=== PATIENT | female | born 1990 | race Caucasian/White ===

== ENCOUNTER → 2020-01-30 10:24 | Outpatient (CLI) | payer SELFPAY | PROVIDERS: Visit Provider Family Medicine | DX: Z11.59 Encounter for screening for other viral diseases (principal) | CPT/HCPCS: 87635; G2023; U0003 ==

== ENCOUNTER 2020-05-07 10:28 | Emergency (ER) | payer OTHER, MEDICAID, SELFPAY ==
[2020-03-19 17:06] VITALS: BMI 18.7
[2020-05-07 10:30] VITALS: BP 140/82; PULSE 125; RESP 17; TEMP 36.8; O2SAT 100; BMI 19.3
--- NOTE | 2020-05-07 10:41 | EKG12_ITS ---
Test Reason : PALP Blood Pressure : / mmHG Vent. Rate : 096 BPM Atrial Rate : 096 BPM P-R Int : 152 ms QRS Dur : 082 ms QT Int : 356 ms P-R-T Axes : 079 082 060 degrees QTc Int : 449 ms Normal sinus rhythm Normal ECG Confirmed by STANFORD SORTO, TRISH ([id number]), television news video editor SONI HEREDIA ([id number]) on 05/09/2020 10:11:30 AM Referred By: FOLR Confirmed By:TRISH COYNE MD
--- NOTE | 2020-05-07 10:42 | ED.DCSUM_ITS ---
History of Present Illness Chief Complaint: Palpitations Detail of Chief Complaint: Chest tightness and racing heart Informant: Patient Onset: Yesterday Context: Gradual Onset Timing: Waxes and wanes Current Severity: Mild Maximum Severity: Moderate Narrative: Patient presents with chest tightness that started last evening while she was cooking. She does not feel short of breath. She denies lightheadedness or near syncope. She does feel that her heart is racing. She states this persisted all night and when she went to work this morning she had 1 of the nurses at work check her vital signs. Her blood pressure and heart rate were both elevated so she came in for evaluation. She denies DVT risk factors. Past Medical History - Allergies and Home Meds Allergies/Adverse Reactions: Allergies No Known Allergies Allergy (Verified 05/07/20 10:30) Primary Care Physician: Sara Laguerre MD [STAFF PHYSICIAN] - As Needed Prior records reviewed: Yes Smoking Status: Never smoker Review of Systems General: Denies: Chills, Fever Eyes: Denies: Visual changes - bilaterally ENT: Denies: Bilateral ear pain Cardiovascular: Reports: Chest pain - Chest tightness, Heart racing Respiratory: Denies: Dyspnea, Cough Gastrointestinal: Denies: Abdominal pain, Vomiting, Diarrhea Genitourinary: Denies: Dysuria Musculoskeletal: Denies: Swelling, Extremity Pain Neurological: Denies: Headache Hematologic: Denies: Easy bruising, Easy bleeding Allergy: Denies: Uticaria Physical Exam Vital Signs/Narrative: Vital Signs Temp Pulse Resp BP Pulse Ox 05/07/20 10:30 98.2 F 125 H 17 140/82 H 100 Inital Vital Signs reviewed: Yes General: Well nourished, Well developed Head: Normocephalic ENT: Moist mucous membranes Neck: Supple Cardiovascular: Regular rate, Regular rhythm, Tachycardia Respiratory: No distress, CTA bilaterally Abdomen: Soft, Nontender Skin: Normal color Neurological: Alert Psychological: Normal affect Diagnostic/Tx/Re-eval Impressions Chest X-Ray 05/07/20 11:06 IMPRESSION: Normal x-ray examination of the chest. Electronically Signed: Eri Guadarrama, at 11:59 EDT Tel , Service support , 05/07/20 11:06 Chest 1 View (Portable) [RAD] Stat Laboratory Results 05/07/20 05/07/20 05/07/20 11:10 11:10 11:10 WBC 6.1 RBC 4.53 Hgb 14.6 Hct 39.4 MCV 87.0 MCH 32.2 H MCHC 37.1 H RDW Std Deviation 38.8 RDW Coeff of Jacques 12.2 Plt Count 247 MPV 9.9 Immature Gran % (Auto) 0.200 Neut % (Auto) 71.8 H Lymph % (Auto) 19.5 Burke % (Auto) 7.9 Eos % (Auto) 0.3 Baso % (Auto) 0.3 Absolute Neuts (auto) 4.4 Absolute Lymphs (auto) 1.18 Nucleated RBC % 0 D-Dimer Quant (PE/DVT) 0.28 Sodium 137 Potassium 3.1 L Chloride 107 Carbon Dioxide 24.0 Anion Gap 6 BUN 8 Creatinine 0.79 Estim Creat Clear Calc 80.00 Est GFR (MDRD) Af Amer 111 Est GFR (MDRD) Non-Af 92 BUN/Creatinine Ratio 10.1 Glucose 103 Calcium 8.8 Troponin I < 0.015 TSH 0.75 Serum , Qual 05/07/20 11:10 WBC RBC Hgb Hct MCV MCH MCHC RDW Std Deviation RDW Coeff of Jacques Plt Count MPV Immature Gran % (Auto) Neut % (Auto) Lymph % (Auto) Burke % (Auto) Eos % (Auto) Baso % (Auto) Absolute Neuts (auto) Absolute Lymphs (auto) Nucleated RBC % D-Dimer Quant (PE/DVT) Sodium Potassium Chloride Carbon Dioxide Anion Gap BUN Creatinine Estim Creat Clear Calc Est GFR (MDRD) Af Amer Est GFR (MDRD) Non-Af BUN/Creatinine Ratio Glucose Calcium Troponin I TSH Serum , Qual NEGATIVE - EKG Initial EKG Interpretation: Sinus Rhythm - Sinus at 96 with no acute ischemia. Normal intervals. - Medical Decision Making Patient was given IV fluids here. On repeat evaluation she is resting comfortably. Oral potassium replacement is given. She will be given a prescription for 3 additional days. The remainder of her lab work is unremarkable patient is reassured with this. ED Disposition - Plan for ED Patient: Disposition: Longterm Facility Diagnosis: Palpitations, Hypokalemia Instructions: ED Potassium Deficiency, ED Palpitations Prescriptions: Potassium Chloride [Klor-Con] 20 meq PO BID #6 packet Transmission Status: Pending to [id number] Referrals: Sara Laguerre MD [STAFF PHYSICIAN] - As Needed
--- NOTE | 2020-05-07 11:06 | RAD_ITS ---
STUDY: X-RAY CHEST REASON FOR EXAM: Female, 29 years old. PALPITATIONS AND CHEST TIGHTNESS STARTING LAST NIGHT TECHNIQUE: Single AP portable view of the chest. COMPARISON: None. FINDINGS: The lungs are clear and expanded. There is no demonstrated pleural abnormality. Normal size heart. Normal mediastinum and wm. Normal visualized pulmonary arteries. Normal visualized aortic arch and descending thoracic aorta. Normal visualized thoracic spine. Normal visualized ribs, clavicles, and shoulders. There is no demonstrated abnormality of the visualized soft tissue structures of the upper abdomen. RAD/Chest 1 View (Portable) IMPRESSION: Normal x-ray examination of the chest. Electronically Signed: Eri Guadarrama, at 11:59 EDT Tel , Service support ,
[2020-05-07 11:28] LABS: Absolute Lymphocyte Count 1.18 X10^3/uL (0.83-4.51); Absolute Neutrophil Count 4.4 X10^3/uL (2.0-7.7); Basophil# 0.02 X10^3/uL; Basophil% 0.3 % (0-1); Eosinophil# 0.02 X10^3/uL; Eosinophils% 0.3 % (0-5); Hematocrit 39.4 % (37-47); Hemoglobin 14.6 g/dL (12.0-15.0); Lymphocyte # 1.18 X10^3/ul (4.0); Lymphocyte % 19.5 % (19-41); Mean Corp Hgb Conc 37.1 g/dL (32-36); Mean Corpuscular Hgb 32.2 pg (27.0-32.0); Mean Platelet Vol. 9.9 fl (6.2-12.0); Monocyte# 0.48 X10^3/uL; Monocyte% 7.9 % (0-10); NRBC Flagged by Analyzer 0 % (0-5); Neutrophil # 4.35 X10^3/uL (2.7-7.7); Neutrophil % 71.8 % (47-70); Platelet Count 247 K/mm3 (150-450); RBC Distribution Width CV 12.2 % (11.6-14.6); RBC Distribution Width SD 38.8 fl (35.1-43.9); Red Blood Count 4.53 M/mm3 (4.2-5.4); White Blood Count 6.1 K/mm3 (4.4-11.0)
[2020-05-07 11:29] VITALS: PULSE 107; RESP 21; O2SAT 94
[2020-05-07 11:50] LABS: D-Dimer Quantitative (DVT/PE) 0.28 FEU/ug/m (0.27-0.49)
[2020-05-07 11:53] LABS: Anion Gap 6 (5-15); BUN 8 mg/dL (7-18); BUN/Creat Ratio 10.1 RATIO (10-20); Calcium,Total 8.8 mg/dL (8.5-10.1); Chloride 107 mmol/L (98-107); Creatinine, Serum 0.79 mg/dL (0.55-1.02); EST Glomerular Filtration Rate 92 mL/min (>60); Est Glom Filt Rate - Afr Amer 111 mL/min (>60); Glucose 103 mg/dL (74-106); Potassium 3.1 mmol/L (3.5-5.1); Sodium Level 137 mmol/L (136-145); Thyroid Stim Hormone (TSH) 0.75 uIU/mL (0.358-3.74)
[2020-05-07] MEDS: 0.9% Normal Saline 1,000 ML 1000 ML IV (12:00)
[2020-05-07 12:16] LABS: Internal QC Validated? YES +Cl - CLEAR BKGD; Pregnancy, Serum, hCG Quali. NEGATIVE Negative
== END 2020-05-07 13:20 | disposition home or self-care (01) ==
PROVIDERS: Emergency Provider Emergency Medicine
DX: R00.2 Palpitations (principal); E87.6 Hypokalemia; R07.89 Other chest pain
CPT/HCPCS: 71045; 80048; 84443; 84484; 84703; 85025; 85379; 93005; 96360; 99284; J7030; A4216

== ENCOUNTER 2020-05-10 19:33 | Emergency (ER) | payer OTHER, MEDICAID, SELFPAY ==
[2020-05-10 19:35] VITALS: BP 149/98; PULSE 103; RESP 18; TEMP 36.2; O2SAT 99; BMI 19.2
--- NOTE | 2020-05-10 19:47 | ED.DCSUM_ITS ---
History of Present Illness Chief Complaint: Hypertension Informant: Patient Narrative: 29-year-old female with no significant past medical history presents with concern for elevated blood pressure. States that she was seen here 2 days ago and had a complete work-up for chest pain. Was found to have low potassium and given potassium replacement. Patient concerned because her blood pressure was elevated again she felt like her heart was racing. Is concerned that her potassium level is related to this issue. States that yesterday she woke up with a sore throat and a cough. Denies any fever or chills. Patient already has had coronavirus 2 months ago and has since convalesced. Denies any history of DVT or pulmonary embolism. Past Medical History - Allergies and Home Meds Allergies/Adverse Reactions: Allergies No Known Allergies Allergy (Verified 05/10/20 19:38) Primary Care Physician: Silvestre Mason MD [Primary Care Provider] - Past Medical History: None Surgical History: no surgical history Lives: With Family Smoking Status: Never smoker Alcohol: None Drugs: None Review of Systems General: Denies: Chills, Fever, Sweats Eyes: Denies: Visual changes - bilaterally, Diplopia ENT: Denies: Rhinorrhea, Sore throat Cardiovascular: Denies: Chest pain, Palpitations Respiratory: Denies: Dyspnea, Cough, Dyspnea on exertion Gastrointestinal: Denies: Abdominal pain, Nausea, Vomiting, Diarrhea, Melena, Hematochezia Genitourinary: Denies: Dysuria, Hematuria, Frequency Musculoskeletal: Denies: Back pain, Extremity Pain Skin: Denies: Rash, Wounds Neurological: Denies: Headache, Weakness, Numbness Physical Exam Vital Signs/Narrative: Vital Signs Temp Pulse Resp BP Pulse Ox 05/10/20 19:35 97.1 F L 103 H 18 149/98 H 99 Inital Vital Signs reviewed: Yes General: Well nourished, Well developed, No Acute Distress Head: Normocephalic, Atraumatic Eyes: Perrl, EOMI ENT: Moist mucous membranes, No rhinorrhea Neck: Supple, Nontender Cardiovascular: Regular rate, Regular rhythm, No murmurs Respiratory: No distress, CTA bilaterally, Chest nontender Abdomen: Soft, Nontender, Nondistended, Normal bowel sounds Back: Nontender, Normal Inspection Extremities: Nontender, No edema Skin: Normal color, No rash Neurological: Alert, Oriented x3, Cranial nerves II-XII grossly intact, Normal Strength, Normal Sensation Psychological: Normal affect, Normal Mood Diagnostic/Tx/Re-eval Laboratory Data 05/10/20 05/10/20 20:10 20:10 WBC 7.9 RBC 4.54 Hgb 13.6 Hct 40.0 MCV 88.1 MCH 30.0 MCHC 34.0 D RDW Std Deviation 38.5 RDW Coeff of Jacques 12.0 Plt Count 228 MPV 9.4 Immature Gran % (Auto) 0.300 Neut % (Auto) 77.4 H Lymph % (Auto) 13.9 L [place] % (Auto) 7.7 Eos % (Auto) 0.3 Baso % (Auto) 0.4 Absolute Neuts (auto) 6.1 Absolute Lymphs (auto) 1.10 Sodium 137 Potassium 3.4 L Chloride 103 Carbon Dioxide 29.0 Anion Gap 5 BUN 7 Creatinine 0.73 Estim Creat Clear Calc 86.27 Est GFR (MDRD) Af Amer 122 Est GFR (MDRD) Non-Af 101 BUN/Creatinine Ratio 9.6 L Glucose 100 Calcium 8.9 Troponin I < 0.015 - Rhythm Strip Rhythm Strip: Sinus Rhythm Rate: 78 Ectopy: None - EKG Initial EKG Interpretation: Sinus Rhythm - Sinus rhythm at 78 bpm. NV interval of 164 ms. QTC of 410 ms. No evidence of ST elevation or depression at this time. - Medical Decision Making Patient appears well nontoxic. Vital signs within normal limits. EKG nonischemic. Lab work repeated which is negative other than a mild hypokalemia. Patient has potassium replacement at home. Patient was also given hydroxyzine as well as Naprosyn in the emergency department. Patient states that she feels the hydroxyzine did help her symptoms and will be given this for home. Was advised to follow-up with her primary care provider Dr. Mason for Holter monitor. Discharged home in stable condition. 1. Palpitations 2. Hypokalemia ED Disposition - Plan for ED Patient: Disposition: Home or Assisted Living Instructions: ED HBP No Tx, ED Palpitations, What Is Holter Monitoring? Prescriptions: hydrOXYzine pamoate capsule [Vistaril pamoate capsule] 25 mg PO TID PRN PRN #20 cap PRN Reason: Anxiety Prescription Printed Referrals: Silvestre Mason MD [Primary Care Provider] -
--- NOTE | 2020-05-10 19:47 | EKG12_ITS ---
Test Reason : HTN Blood Pressure : / mmHG Vent. Rate : 078 BPM Atrial Rate : 078 BPM P-R Int : 164 ms QRS Dur : 080 ms QT Int : 360 ms P-R-T Axes : 067 075 054 degrees QTc Int : 410 ms Normal sinus rhythm Normal ECG Confirmed by TACHO SORTO, NATALY ([id number]), newspaper photo editor SONI HEREDIA ([id number]) on 05/16/2020 11:01:58 AM Referred By: JENNI Confirmed By:MASHA TITUS MD
[2020-05-10] MEDS: hydrOXYzine PAM 25 MG Capsule PO (20:19)
[2020-05-10] MEDS: Naproxen 375 MG Tablet PO (20:39)
[2020-05-10 20:44] LABS: Anion Gap 5 (5-15); BUN 7 mg/dL (7-18); BUN/Creat Ratio 9.6 RATIO (10-20); Calcium,Total 8.9 mg/dL (8.5-10.1); Chloride 103 mmol/L (98-107); Creatinine, Serum 0.73 mg/dL (0.55-1.02); EST Glomerular Filtration Rate 101 mL/min (>60); Est Glom Filt Rate - Afr Amer 122 mL/min (>60); Estimated Creatinine Clearance 86.27 ml/min; Glucose 100 mg/dL (74-106); Potassium 3.4 mmol/L (3.5-5.1); Sodium Level 137 mmol/L (136-145)
[2020-05-10 20:56] LABS: Hemoglobin 13.6 g/dL (12.0-15.0); Red Blood Count 4.54 M/mm3 (4.2-5.4); White Blood Count 7.9 K/mm3 (4.4-11.0)
[2020-05-10 20:58] LABS: Mean Corpuscular Volume 88.1 fL (81-99)
[2020-05-10 21:00] LABS: Absolute Neutrophil Count 6.1 X10^3/uL (2.0-7.7); Basophil% 0.4 % (0-1); Eosinophils% 0.3 % (0-5); Lymphocyte % 13.9 % (19-41); Mean Platelet Vol. 9.4 fl (6.2-12.0); Monocyte% 7.7 % (0-10); Neutrophil # 6.13 X10^3/uL (2.7-7.7); Neutrophil % 77.4 % (47-70); POSITIVE COUNT NO; POSITIVE DIFFERENTIAL NO; POSITIVE MORPHOLOGY NO; Platelet Count 228 K/mm3 (150-450); RBC Distribution Width SD 38.5 fl (35.1-43.9)
[2020-05-10 21:01] LABS: Basophil# 0.03 X10^3/uL; Eosinophil# 0.02 X10^3/uL; Monocyte# 0.61 X10^3/uL
[2020-05-10 21:39] VITALS: BP 132/78; PULSE 71; RESP 18; O2SAT 99
== END 2020-05-10 21:40 | disposition home or self-care (01) ==
PROVIDERS: Emergency Provider Emergency Medicine; PCP Family Medicine
DX: R00.2 Palpitations (principal); E87.6 Hypokalemia; I10 Essential (primary) hypertension; J02.9 Acute pharyngitis, unspecified; R05 Cough
CPT/HCPCS: 80048; 84484; 85025; 93005; 99283

== ENCOUNTER → 2020-05-17 11:51 | Outpatient (CLI) | payer OTHER, MEDICAID, SELFPAY ==
[2020-05-10 19:35] VITALS: BMI 19.2
== END ==
PROVIDERS: PCP Family Medicine; Visit Provider Nurse Practitioner Primary Care
DX: R00.0 Tachycardia, unspecified (principal)
CPT/HCPCS: 93225; 93226

== ENCOUNTER 2021-01-15 05:54 | Day surgery (SDC) | payer OTHER, MEDICAID, SELFPAY ==
[2020-12-10 11:13] VITALS: BMI 19.2
[2021-01-11 14:58] LABS: Hematocrit 37.2 % (37-47); Hemoglobin 12.1 g/dL (12.0-15.0); Mean Corp Hgb Conc 32.5 g/dL (32-36); Mean Corpuscular Hgb 28.2 pg (27.0-32.0); Mean Corpuscular Volume 86.7 fL (81-99); Mean Platelet Vol. 9.3 fl (6.2-12.0); Platelet Count 222 K/mm3 (150-450); RBC Distribution Width CV 12.5 % (11.6-14.6); RBC Distribution Width SD 39.8 fl (35.1-43.9); Red Blood Count 4.29 M/mm3 (4.2-5.4); White Blood Count 5.8 K/mm3 (4.4-11.0)
[2021-01-14 06:34] VITALS: BMI 19.2
[2021-01-15 06:16] LABS: Internal QC Validated? YES +Cl - CLEAR BKGD; Pregnancy, Urine Negative Negative
[2021-01-15 06:23] VITALS: BP 126/86; PULSE 103; RESP 18; TEMP 36.8; O2SAT 100; BMI 20.5
[2021-01-15] MEDS: Lactated Ringers 1,000 ML 100 ML IV (06:34)
--- NOTE | 2021-01-15 07:27 | PCM.HP.BLA ---
History and Physical Date of Admission: 01/15/21 Intake Vital Signs 01/11/21 14:12 01/11/21 14:13 Height 5 ft 3 in Weight: 111 lb BMI 19.6 19.2 BP 100/60 Intake Visit Reasons: D&C polypectomy Chief Complaint: pre op D&C polypectomy Master Data Analyst Required: No Is patient in pain?: No Allergies No Known Allergies Allergy (Verified 01/11/21 13:42) Medications escitalopram oxalate 10 mg tablet 10 mg PO QHS 12/10/20 [History Confirmed 01/11/21] [id number] [] 1 tab PO DAILY 01/11/21 [History Confirmed 01/11/21] Is last menstrual period known: No Post menopausal: No Patient : No : No PFSH Medical History Alcohol use Anxiety History of COVID-19 Non-smoker Uterine polyp Family History Mother Thyroid disorder Anxiety Social History Smoking Status: Never smoker alcohol intake: current alcohol intake frequency: 0-2 drinks per day Alcohol type: wine substance use type: does not use caffeine: Yes what type of physical activity do you participate in: yoga frequency: 1-2 times per week do you feel safe at home: Yes additional social history: Louis Patient works at the [employer] HPI D&C polypectomy Details: ROSAMARIA MOTA is a 30 year old who presents for proep visit. she has been seeing an infertility specialist and it is recommend to have a hysteroscopic polypectomy removal Female Reproductive History Menopausal Symptoms: No night sweats Pregancy History 2 Elective abortions Hx Para 1 Spontaneous abortions 1 Hx # Term Pregnancies Ectopic pregnancies Hx # Pregnancies Multiple births # of living children 1 Past Pregnancies Del. Date Name GA/Weeks Outcome Route Bth Weight Infant Gen Labor Lgth Anesthesia Del Locatn Provider FOB Unknown Vonda 40 live - full term 6lbs 11oz Female 5.5 hours epidural Benekos ROS Const Constitutional: Denies fatigue, fever(s), headache(s), increased appetite, poor appetite, night sweats, weight gain or weight loss ENT ENT: Reports system reviewed and no additional complaints, except as documented Cardio Card: Denies chest pain Resp Resp: Denies cough or dyspnea GI GI: Reports as per HPI; Denies abdominal pain, constipation, nausea or vomiting : Reports as per HPI; Denies difficulty voiding, dysuria, hematuria, nipple discharge, pelvic pain, urinary frequency, urinary incontinence, urinary hesitancy, urinary urgency, vaginal discharge, vaginal dryness, vaginal odor, vaginal pruritus or other Musc Musc: Denies arthralgias, back pain or muscle weakness Skin Skin/Breast: Denies alopecia, change in hair, dry skin, breast mass, breast pain, breast skin changes or nipple discharge Neuro Neuro: Reports system reviewed and no additional complaints, except as documented Psych Psych: Reports system reviewed and no additional complaints, except as documented Endo Endo: Denies cold intolerance, excessive sweating, heat intolerance or polydipsia Rene/Lymph Hematologic/Lymphatic: Denies easy bleeding, Denies easy bruising and Denies lymphadenopathy Exam Const General: cooperative, healthy appearing, comfortable, no acute distress and well developed Orientation: alert [facility] Head: normal to inspection and normocephalic Ears: hearing grossly normal bilaterally and external ears normal Nose: external nose normal and nares normal Face and sinus: normal facial exam Neck Neck: normal visual inspection, no lymphadenopathy and trachea midline Thyroid: thyroid normal Chest Chest palpation & inspection: normal inspection of the chest Resp Effort & Inspection: normal respiratory effort Auscultation: clear to auscultation bilaterally Cardio Rate: regular rate Rhythm: regular rhythm Heart Sounds: S1 normal and S2 normal GI Inspection: normal to inspection and non-distended Palpation: soft and no hepatosplenomegaly Musc Other: gross motor intact no deficits, full bilateral strength Skin General: no rashes or lesions noted Neuro General: patient alert, patient awake, moves all extremities and no focal motor deficits Motor: muscle tone normal throughout Extrem General: normal to inspection and no pedal edema Psych Appearance: grossly normal Mental Status: mental status grossly normal Affect: normal affect Speech and Movement: speech and movement normal Coding Level of Care Code No Charge Diagnoses Endometrial polyp N84.0 Assessment and Plan Assessment and Plan (1) Endometrial polyp: Status: Acute Comment: diagnosed by RGI recommended to have d and c polypectomy, patient requesting surgery at [facility] for better insurance coverage Plan - Dr. Marisabel Hudson MD: After discussing the patient's diagnosis and treatment plan options, patient wishes to proceed with surgical management. I have discussed with the patient the risks, benefits, and alternatives of the procedure which include but are not limited to risks of anesthesia, bleeding, infection, possible damage to bowel, bladder, or surrounding vasculature which could lead to additional surgery to evaluate any complications. Patient agrees to procedure and wishes to proceed. ACOG/uptodate references given for additional information regarding procedure. UPDATE- I have seen the patient and performed any clinically relevant updates to the history and physical exam. Marisabel Hudson MD
--- NOTE | 2021-01-15 07:30 | EMB_PTH ---
PATIENT: ROSAMARIA HYDE LOC: [facility] [place] U#:[id number] AGE/SX: 30/F ROOM: RE01/15/[address]: Dr. Marisabel Hudson MD : 1990 BED: DIS: 01/15/2021 SPEC #: [id number] RECD: 01/15/21 10:13 STATUS: KILLIAN REJose #: [id number] NEGRA: 01/15/21 07:[address]: Marisabel Hudson DEPT: SURGICAL PATHOLOGY RECD BY: Carri Mack ENTERED: 01/15/21 10:34 SP TYPE: ENDOM BX/C OTHR DR: Dr. Silvestre Mason MD Tissues: Endometrium, NOS Procedures: Surgery Specimen Level IV HEADER OPERATION: Hysteroscopy, D & C, polypectomy, Symphion PRE-OP DIAGNOSIS: Endometrial polyp TISSUE SUBMITTED: Endometrial polyp MICROSCOPIC DIAGNOSIS Endometrial polyp, curettings: Polypoid fragments of secretory endometrium. AM:finn 01/16/2021 MICROSCOPIC DESCRIPTION Slides are reviewed. GROSS DESCRIPTION Received in fixative is one container labeled with the patient's name and designated endometrial polyp. The specimen consists of multiple irregular fragments of myers-pink soft tissue that in aggregate measure 7.5 x 3 x 0.3 cm. The specimen is totally submitted in three cassettes. / SJ:finn 01/15/21 TC:5 CPT: 94488
[2021-01-15] MEDS: Lubricating Jelly 60 GM Tube 30 GM TOPICAL (07:41)
[2021-01-15] MEDS: Silver Nitrate (BKC) 1 EACH (07:50)
--- NOTE | 2021-01-15 08:04 | PCM.OPRPT ---
Problems Associated Problem List Diagnoses (1) Endometrial polyp: Report of Operation Date of Procedure: 01/15/21 Pre-Operative Diagnosis: see problem list Post-Operative Diagnosis: same Surgery/Procedure Performed:: D&C hysteroscopy polypectomy using symphion desktop support engineer: None Type of Anesthesia: Local MAC Special Medications: none Specimen's removed: EMC, polyp Drains: none Estimated Blood Loss (mL): 50 Fluids Replaced: crystalloid Description of Procedure: Patient was prepped and draped in a normal sterile fashion under MAC anesthesia. A weighted speculum was placed in the vagina and the anterior lip of the cervix was grasped with a single-tooth tenaculum. A paracervical block was placed with 1% lidocaine. Cervix was progressively dilated to allow passage of a 5 mm hysteroscope. The lining was fully visualized and noted to have thickened lining with a posterior polyp. Uterine sounded to 8 cm cm. Using the symphion device, the polyp was progressively removed without complications. Direct visual curettage was performed using the device , and all specimens were sent to pathology. All instruments were removed from the vagina and excellent hemostasis was noted. Patient was awoken and taken to recovery in stable condition. Grafts/Implants Used: none Complications none Admit VTE Documentation VTE Present on Admission: No VTE Mechan Device Prophylaxis: SCD's Multi Select Codes Urinary/Genital Urinary/Genital CPT Codes: 60835 Hysteroscopy,EMC, Polypectomy
[2021-01-15 08:05] VITALS: BP 124/89; BP 126/86; PULSE 101; RESP 16; TEMP 36.4; O2SAT 100
--- NOTE | 2021-01-15 08:09 | PCM.DC ---
Discharge Instructions Diet Discharge Diet: No restrictions Activity Discharge Activity: Return to Normal Activity, May Shower and May Take a Tub Bath (after 1 week) May resume sexual activity in: 1-2 weeks Weight Bearing Status: Weight bearing as tolerated Lifting Restrictions: none Dressing / Incision Call your doctor if you observe: Fever of 101 or Higher, Using more than 1 pad per hour, Shortness of breath and Uncontrolled pain Follow Up Care Please Follow Up With: Marisabel Hudson MD When: Call [phone] to schedule appointment. Test Results: Test results from this visit will be discussed in further detail at your follow-up appointment, if applicable. Discharge Plan Admission Primary Reason for Your Visit: polypectomy Attending Provider: Marisabel Hudson Primary Care Provider: Silvestre Mason Discharge Orders/Prescriptions Prescriptions: New naproxen 250 MG tablet 250 - 500 mg PO Q8H PRN PRN (Reason: MILD PAIN) Qty: 30 RF: 1 Continued escitalopram oxalate [Lexapro] 10 mg tablet 10 mg PO QHS RF: 0 [id number] 1 mg Tablet 1 tab PO DAILY RF: 0 Referrals / Follow Up: Silvestre Mason MD [Primary Care Provider] - Marisabel Hudson MD [STAFF PHYSICIAN] - Disposition Discharge Orders: Discharge Patient (Routine); Ordered 01/15/21 Ordered By: Dr. Marisabel Hudson
[2021-01-15 08:10] VITALS: BP 115/80; BP 126/86; PULSE 94; RESP 16; O2SAT 99
[2021-01-15 08:15] VITALS: BP 111/69; BP 126/86; PULSE 88; RESP 16; O2SAT 100
[2021-01-15 08:20] VITALS: BP 104/68; BP 126/86; PULSE 84; RESP 16; TEMP 36.1; O2SAT 100
[2021-01-15 08:56] VITALS: BP 105/68; BP 126/86; PULSE 81; RESP 16; TEMP 36.8; O2SAT 100
== END 2021-01-15 08:59 ==
LOC: SDC 05:54 → AC 05:55
PROVIDERS: Anesthesiology; PCP Family Medicine; Referring Provider Obstetrics & Gynecology; Visit Provider Obstetrics & Gynecology
PROC: 0UB98ZZ Excision of Uterus, Via Natural or Artificial Opening Endoscopic (ICD-10-PCS; CPT 58558; principal; 2021-01-15 07:15)
DX: N84.0 Polyp of corpus uteri (principal); F41.9 Anxiety disorder, unspecified; Z79.899 Other long term (current) drug therapy; Z86.16 Personal history of COVID-19
CPT/HCPCS: 58558; 36415; 81025; 85027; 86850; 86900; 86901; 88305; J7120

== ENCOUNTER → 2021-05-13 | Outpatient (CLI) | payer OTHER, SELFPAY ==
[2021-05-13 16:24] LABS: Chlamydia Trachomatis by PCR Negative (Negative); Neisserai gonorrhoeae by PCR Negative (Negative); Probe Check PASS; Sample Adequacy Control PASS; Specimen Processing Control PASS
== END | disposition home or self-care (01) ==
PROVIDERS: PCP Family Medicine; Visit Provider Physician Assistant
DX: N39.0 Urinary tract infection, site not specified (principal)
CPT/HCPCS: 87491; 87591

== ENCOUNTER → 2021-05-18 | Outpatient (CLI) | payer OTHER, SELFPAY ==
[2021-05-18 10:15] LABS: Bacteria 0 SEEN /hpf (None Seen); Mucous, Urine 0 SEEN /hpf (<or=2+); Red Blood Cells-Urine 0 SEEN /hpf (0-5); White Blood Cells 0 SEEN /hpf (0-5)
[2021-05-18 10:20] LABS: Color, Urine Yellow (Yellow); Glucose, Dipstick Normal (Normal); Ketone-Dipstick Negative (Negative); Leukocyte Esterase-Dipstick Negative /ul (Negative); Nitrite-Dipstick Negative (Negative); Occult Blood-Urine Negative /ul (Negative); Protein-Dipstick Negative (Negative); Urine Bilirubin Dipstick Negative (Negative); Urine Clarity Clear (Clear); Urine Urobilinogen Normal (Normal)
[2021-05-18 10:43] LABS: Squamous Epithelial Cells - UA 0-5 SEEN /hpf (5-10)
[2021-05-18 13:28] LABS: Chlamydia Trachomatis by PCR Negative (Negative); Neisserai gonorrhoeae by PCR Negative (Negative); Probe Check PASS; Sample Adequacy Control PASS; Specimen Processing Control PASS
== END | disposition home or self-care (01) ==
LOC: LABSPEC 10:05
PROVIDERS: PCP Family Medicine; Referring Provider Physician Assistant Surgical; Visit Provider Physician Assistant Surgical
DX: N39.0 Urinary tract infection, site not specified (principal); Z20.828 Contact with and (suspected) exposure to other viral communicable diseases
CPT/HCPCS: 81001; 87086; 87088; 87491; 87591

== ENCOUNTER → 2021-07-22 14:28 | Outpatient (CLI) | payer OTHER, SELFPAY ==
[2021-07-22 18:04] LABS: hCG Titer Quant., Serum 95 mIU/mL (1-3)
== END ==
PROVIDERS: PCP Family Medicine
DX: Z32.01 Encounter for pregnancy test, result positive (principal)
CPT/HCPCS: 36415; 84702

== ENCOUNTER → 2021-07-24 11:39 | Outpatient (CLI) | payer OTHER, SELFPAY ==
[2021-07-24 12:24] LABS: hCG Titer Quant., Serum 185 mIU/mL (1-3)
== END ==
PROVIDERS: PCP Family Medicine
DX: Z32.01 Encounter for pregnancy test, result positive (principal)
CPT/HCPCS: 36415; 84702

== ENCOUNTER 2021-09-06 09:38 | Outpatient (CLI) | payer OTHER, SELFPAY ==
[2021-09-06 11:27] LABS: hCG Titer Quant., Serum 32 mIU/mL (1-3)
== END 2021-09-06 23:59 | disposition short-term general hospital (02) ==
LOC: LAB 09:41
PROVIDERS: PCP Nurse Practitioner Family; Visit Provider Obstetrics & Gynecology
DX: O03.4 Incomplete spontaneous abortion without complication (principal)
CPT/HCPCS: 36415; 84702

== ENCOUNTER → 2022-03-11 | Outpatient (CLI) | payer OTHER, MEDICAID, SELFPAY ==
[2022-03-11 23:38] LABS: Mucous, Urine 0 SEEN /hpf (<or=2+)
[2022-03-11 23:45] LABS: Color, Urine Yellow (Yellow); Glucose, Dipstick Normal (Normal); Ketone-Dipstick Negative (Negative); Leukocyte Esterase-Dipstick Negative /ul (Negative); Nitrite-Dipstick Negative (Negative); Occult Blood-Urine 10 /ul (Negative); Protein-Dipstick 15 mg/dl (Negative); Specific Gravity, Urine 1.025 (1.002-1.030); Urine Bilirubin Dipstick Negative (Negative); Urine Clarity Clear (Clear); Urine Urobilinogen Normal (Normal)
[2022-03-11 23:55] LABS: Bacteria 3+ /hpf (None Seen); Red Blood Cells-Urine 0-5 SEEN /hpf (0-5); Squamous Epithelial Cells - UA 10-25 SEEN /hpf (5-10); White Blood Cells 0-5 SEEN /hpf (0-5)
[2022-03-12 01:22] LABS: Chlamydia Trachomatis by PCR Negative (Negative); Neisserai gonorrhoeae by PCR Negative (Negative); Probe Check PASS; Sample Adequacy Control PASS; Specimen Processing Control PASS
== END | disposition home or self-care (01) ==
PROVIDERS: PCP Nurse Practitioner Family; Visit Provider Physician Assistant Surgical
DX: N39.0 Urinary tract infection, site not specified (principal); E78.5 Hyperlipidemia, unspecified
CPT/HCPCS: 81001; 87086; 87088; 87491; 87591

== ENCOUNTER → 2022-05-16 | Outpatient (CLI) | payer OTHER, SELFPAY ==
[2022-05-22 17:50] LABS: HPV APTIMA, High Risk Negative (Negative)
== END | disposition home or self-care (01) ==
LOC: LABSPEC 16:03
PROVIDERS: PCP Nurse Practitioner Family; Visit Provider Obstetrics & Gynecology
DX: Z12.4 Encounter for screening for malignant neoplasm of cervix (principal)
CPT/HCPCS: 87624; 88175; G0145

== ENCOUNTER → 2022-06-11 | Outpatient (CLI) | payer OTHER, MEDICAID, SELFPAY ==
[2022-06-11 16:37] LABS: Hemoglobin A1c 4.8 % (3.8-5.6)
[2022-06-11 16:38] LABS: Prolactin 9.4 ng/mL; Thyroid Stim Hormone (TSH) 0.77 uIU/mL (0.358-3.74)
== END | disposition home or self-care (01) ==
PROVIDERS: PCP Nurse Practitioner Family; Visit Provider Obstetrics & Gynecology
DX: O03.9 Complete or unspecified spontaneous abortion without complication (principal)
CPT/HCPCS: 36415; 83036; 84146; 84443

== ENCOUNTER → 2022-08-07 | Outpatient (CLI) | payer OTHER, MEDICAID, SELFPAY ==
[2022-08-07 10:05] LABS: Bacteria 0 SEEN /hpf (None Seen); Mucous, Urine 0 SEEN /hpf (<or=2+); Red Blood Cells-Urine 0 SEEN /hpf (0-5)
[2022-08-07 12:17] LABS: Color, Urine Yellow (Yellow); Glucose, Dipstick Normal (Normal); Ketone-Dipstick Negative (Negative); Leukocyte Esterase-Dipstick Negative /ul (Negative); Nitrite-Dipstick Negative (Negative); Occult Blood-Urine 10 /ul (Negative); Protein-Dipstick Negative (Negative); Urine Bilirubin Dipstick Negative (Negative); Urine Clarity Clear (Clear); Urine Urobilinogen Normal (Normal)
[2022-08-07 12:24] LABS: Internal QC Validated? YES +Cl - CLEAR BKGD; Pregnancy, Urine Negative Negative
[2022-08-07 13:22] LABS: Squamous Epithelial Cells - UA 5-10 SEEN /hpf (5-10)
[2022-08-07 13:23] LABS: White Blood Cells 0-5 SEEN /hpf (0-5)
== END | disposition home or self-care (01) ==
PROVIDERS: PCP Nurse Practitioner Family; Referring Provider Nurse Practitioner Family; Visit Provider Nurse Practitioner Family
DX: R10.9 Unspecified abdominal pain (principal)
CPT/HCPCS: 81001; 81025; 87086

== ENCOUNTER → 2022-09-17 | Outpatient (CLI) | payer OTHER, MEDICAID, SELFPAY ==
[2022-09-17 16:20] LABS: Absolute Lymphocyte Count 2.13 X10^3/uL (0.83-4.51); Absolute Neutrophil Count 2.8 X10^3/uL (2.0-7.7); Basophil# 0.03 X10^3/uL; Basophil% 0.5 % (0-1); Eosinophil# 0.07 X10^3/uL; Eosinophils% 1.2 % (0-5); Hematocrit 37.1 % (37-47); Hemoglobin 12.3 g/dL (12.0-15.0); Lymphocyte # 2.13 X10^3/ul (0.83-4.51); Mean Corp Hgb Conc 33.2 g/dL (32-36); Mean Corpuscular Volume 87.5 fL (81-99); Mean Platelet Vol. 9.6 fl (6.2-12.0); Monocyte# 0.58 X10^3/uL; Monocyte% 10.3 % (0-10); NRBC Flagged by Analyzer 0 % (0-5); Neutrophil # 2.78 X10^3/uL (2.7-7.7); Neutrophil % 49.6 % (47-70); Platelet Count 218 K/mm3 (150-450); RBC Distribution Width CV 12.1 % (11.6-14.6); RBC Distribution Width SD 38.5 fl (35.1-43.9); Red Blood Count 4.24 M/mm3 (4.2-5.4); White Blood Count 5.6 K/mm3 (4.4-11.0)
[2022-09-17 17:19] LABS: ALB/GLOB Ratio 1.2 RATIO (0.9-2.4); AST(SGOT) 17 U/L (15-37); Alanine Aminotransfer ALT/SGPT 16 U/L (13-56); Albumin, Serum 3.8 g/dL (3.2-5.0); Alkaline Phosphatase 52 U/L (45-117); Anion Gap 6 (5-15); BUN 12 mg/dL (7-18); BUN/Creat Ratio 15.9 RATIO (10-20); Calcium,Total 8.3 mg/dL (8.5-10.1); Chloride 106 mmol/L (98-107); Creatinine, Serum 0.75 mg/dL (0.55-1.02); EST Glomerular Filtration Rate 96 mL/min (>60); Est Glom Filt Rate - Afr Amer 116 mL/min (>60); Globulin 3.3 g/dL (2.2-4.2); Glucose 93 mg/dL (74-106); Potassium 3.6 mmol/L (3.5-5.1); Protein, Total 7.1 g/dL (6.4-8.2); Sodium Level 138 mmol/L (136-145)
== END | disposition home or self-care (01) ==
LOC: LAB 15:51
PROVIDERS: PCP Nurse Practitioner Family; Visit Provider Nurse Practitioner Family
DX: R59.0 Localized enlarged lymph nodes (principal)
CPT/HCPCS: 36415; 80053; 85025

== ENCOUNTER → 2022-09-24 | Outpatient (CLI) | payer OTHER, MEDICAID, SELFPAY ==
--- NOTE | 2022-09-24 13:20 | US_ITS ---
STUDY: SUPERFICIAL ULTRASOUND - REASON FOR EXAM: Female, 31 years old. Submandibular lymphadenopathy TECHNIQUE: A superficial ultrasound was performed with real-time and static walsh-scale imaging. COMPARISON: None. FINDINGS: The palpable abnormality corresponds to a 1.6 x 1.4 cm x 0.5 cm benign-appearing lymph node. US/Head/Neck Soft Tissue IMPRESSION: The palpable abnormality corresponds to a 1.6 times by 1.4 cm x 0.5 cm benign-appearing lymph node. Electronically Signed: Kedar Child MD at 15:52 EST ,
== END | disposition home or self-care (01) ==
PROVIDERS: PCP Nurse Practitioner Family; Visit Provider Nurse Practitioner Family
DX: R59.0 Localized enlarged lymph nodes (principal)
CPT/HCPCS: 76536

== ENCOUNTER → 2023-04-08 | Outpatient (CLI) | payer OTHER, MEDICAID, SELFPAY ==
[2023-04-13 07:06] LABS: Chlamydia By Nucleic Acid AMP Negative (Negative); Gonococcus By Nucleic Acid AMP Negative (Negative)
== END | disposition home or self-care (01) ==
LOC: LABSPEC 13:41
PROVIDERS: PCP Nurse Practitioner Family; Referring Provider Nurse Practitioner Women's Health; Visit Provider Nurse Practitioner Women's Health
DX: N89.8 Other specified noninflammatory disorders of vagina (principal)
CPT/HCPCS: 87070; 87205; 87491; 87591

== ENCOUNTER 2023-11-12 15:52 | Day surgery (SDC) | payer OTHER, MEDICAID, SELFPAY ==
[2023-11-12] VITALS (9 sets, daily range): BP systolic 92–141; BP diastolic 55–78; PULSE 76–96; RESP 16; TEMP 36.6–37.6; O2SAT 98–100; BMI 24.4
--- NOTE | 2023-11-12 15:53 | US_ITS ---
We are attempting to reach an attending provider to discuss findings. An addendum with communication details will be sent when the communication is complete. EXAM: US , TRANSVAGINAL CLINICAL INDICATION: bleeding and pain in TECHNIQUE: Real-time transvaginal obstetrical ultrasound of the maternal pelvis and a first trimester with image documentation. Transvaginal imaging was used for better evaluation of the fetus and adnexa. COMPARISON: No relevant prior studies available. FINDINGS: GESTATION: There is an anechoic structure in the fundus of the uterus that measures 0.5 x 0.8 x 1.2 cm which may represent fluid or atypical gestational sac age 5 weeks 4 days. Yolk sac identified. PLACENTA/AMNIOTIC FLUID: Cannot be adequately evaluated due to the early gestational age. UTERUS/CERVIX: There are multiple hypoechoic masses in the uterus compatible with fibroids that measure 2.5 x 1.9 x 2.0 cm, 2.3 x 1.8 x 2.0 cm and 2.2 x 1.9 x 2.2 cm. Uterus measures 10.1 x 4.8 x 7.2 cm. OVARIES: The medial to the left ovary there is a thick-walled structure that measures 2.3 x 1.7 x 1.8 cm. There is a central anechoic structure present in this structure and this may represent an ectopic . The left ovary measures 4.4 x 2.8 cm. There is a large anechoic structure in the left ovary that measures 3.1 x 2 x 2.4 cm. The right ovary measures 2.8 x 1.5 x 1.7 cm. No mass. FREE FLUID: No free fluid. US/Transvaginal w/Preg US IMPRESSION: 1. Thick walled structure in the left adnexa that appears to be separate from the ovary possibly representing an ectopic . There also is an irregular anechoic structure in the endometrium which may represent fluid or possibly very early gestational sac. Neither these structures show a yolk sac. There is a large left ovarian cyst present. 2. Multiple uterine fibroids. Electronically Signed: Keven Luna MD at 17:59 EDT ,
--- NOTE | 2023-11-12 17:45 | FAL_PTH ---
PATIENT: ROSAMARIA HYDE [place] [facility] [place][id number] AGE/SX: 32/ ROOM: RE11/12/[address]: Dr. Marisabel Hudson MD : 1990 BED: DIS: 11/12/2023 SPEC #: [id number] RECD: 11/13/23 09:16 STATUS: KILLIAN REJose #: [id number] NEGRA: 11/12/23 17:[address]: Marisabel Hudson DEPT: SURGICAL PATHOLOGY RECD BY: Carri Mack ENTERED: 11/13/23 10:24 SP TYPE: ECTOPIC OTHR DR: THEO Vasques Tissues: ECTOPIC PREG Procedures: Surgery Specimen Level IV HEADER OPERATION: Laparoscopic, removal ectopic PRE-OP DIAGNOSIS: Ectopic , left TISSUE SUBMITTED: Left fallopian tube and ectopic MICROSCOPIC DIAGNOSIS Left fallopian tube, salpingectomy: Chorionic villi, decidualized stroma and trophoblastic cells consistent with intratubal . AM/mr 11/16/2023 MICROSCOPIC DESCRIPTION Slides are reviewed. GROSS DESCRIPTION Received in fixative is one container labeled with the patient's name and designated Left fallopian tube and ectopic . The specimen consists of left fallopian tube measuring 6.0cm in length and up to 2.0cm in diameter. Fimbrial end is identified. Focal area of rupture is noted. Also present in the container are multiple fragments of blood clot measuring in aggregate 2.5 x 2.5 x 1.0cm. The specimen is filled with blood clots. No obvious tissue is identified. Cutting And Creasing Press Operator sections are submitted in four cassettes as follows: 1-3- fallopian tube, 4-blood clot. / 11/13/23 TC:5 CPT: 44400
--- NOTE | 2023-11-12 17:45 | PCM.HP.STD ---
HPI - General HPI Narrative ROSAMARIA MOTA, is a 32 F who presents with suspected left ectopic co vaginal bleeding and lower abdominal pain quant 970. US supicious with free fluid and complex left adnexal mass [facility] Medical History (Updated 11/12/23 @ 17:[address] Marisabel Hudson MD) Alcohol use Anxiety Complete History of COVID-19 Smoker Uterine polyp Home Medications sertraline 50 mg tablet 50 mg PO QDAY #90 tabs 05/16/22 [Rx Last Taken 11/11/23] Allergy/AdvReac Type Severity Reaction Status Date / Time No Known Allergies Allergy Verified 11/12/23 17:33 Family History Mother Thyroid disorder Anxiety Grandmother Cancer Ovarian cancer paternal age 60 Aunt Cervical cancer, Onset Age: 53 paternal aunt Surgical History H/O dilation and curettage History of cervical polypectomy Social History household members: family housing: house number of children: 1 current occupational status: employed current occupation: Patient works at the [employer] Smoking Status: Current every day smoker tobacco type: smokeless tobacco alcohol intake: current alcohol intake frequency: 0-2 drinks per day Alcohol type: wine details: not while substance use type: does not use caffeine: Yes what type of physical activity do you participate in: yoga frequency: 1-2 times per week seatbelt use: always do you feel safe at home: Yes additional social history: ROS Constitutional Constitutional: Reports systems reviewed and no addt'l complaints, except as documented; Denies as per HPI, change in weight, fatigue, fever(s), malaise, weakness or other Eyes Eyes: Reports systems reviewed and no addt'l complaints, except as documented; Denies as per HPI, change in vision or other ENT HEENT: Reports systems reviewed and no addt'l complaints, except as documented Respiratory/Chest Respiratory/Chest: Reports systems reviewed and no addt'l complaints, except as documented Gastrointestinal Gastrointestinal: Reports systems reviewed and no addt'l complaints, except as documented and as per HPI Genitourinary Genitourinary: Reports as per HPI Musculoskeletal Musculoskeletal: Reports systems reviewed and no addt'l complaints, except as documented Neurologic Neurologic: Reports systems reviewed and no addt'l complaints, except as documented Psychiatric Psychiatric: Reports systems reviewed and no addt'l complaints, except as documented Endocrine Endocrinology: Reports systems reviewed and no addt'l complaints, except as documented Hematologic/Lymphatic Hematologic/Lymphatic: Reports systems reviewed and no addt'l complaints, except as documented Vital Signs Vital Signs Vital Signs: 11/12/23 17:42 Respiratory Pattern Normal Physical Exam Const alert, oriented x3 and no apparent distress HEENT normocephalic Head and Scalp: atraumatic Eyes EOMs intact bilaterally and conjunctivae normal Neck full ROM, no lymphadenopathy, supple and thyroid normal General: trachea midline Lymph Lymphatic: no lymphadenopathy noted Resp normal respiratory effort, no retractions, no use of accessory muscles and clear to auscultation bilaterally Cardio regular rhythm GI normal to inspection, nondistended, normoactive bowel sounds, soft to palpation, non-distended and no masses Inspection: Negative for abdominal distention Back/Spine no CVA tenderness Extremity normal to inspection Skin no rashes or lesions noted Neuro moves all extremities and deep tendon reflexes 2+ bilaterally Psych mental status grossly normal Assessment & Plan Assessment/Plan (1) Ectopic : (2) Rh negative status during : QUALIFIERS: Trimester: first trimester Qualified Code(s): O26.891 - Other specified related conditions, first trimester; Z67.91 - Unspecified blood type, Rh negative PLAN: Plan After discussing the patient's diagnosis and treatment plan options, patient wishes to proceed with surgical management. I have discussed with the patient the risks, benefits, and alternatives of the procedure which include but are not limited to risks of anesthesia, bleeding, infection, possible damage to bowel, bladder, or surrounding vasculature which could lead to additional surgery to evaluate any complications. Patient agrees to procedure and wishes to proceed. ACOG/uptodate references given for additional information regarding procedure.
--- NOTE | 2023-11-12 17:46 | OP.PCM_ITS ---
Problems Associated Problem List Diagnoses (1) Ectopic : (2) Rh negative status during : (3) Adhesion of fallopian tube: Report of Operation Date of Procedure: 11/12/23 Pre-Operative Diagnosis: see problem list Post-Operative Diagnosis: same Surgery/Procedure Performed:: laparoscopic left salpingectomy Description of Surgical Findings:: ruptured ectopic, severe bilateral tubal adhesions Surgeon: Marisabel Hudson forestry farm laborer: Art Weiss Type of Anesthesia: General and Local Specimen's removed: tube and ectopic Drains: none Estimated Blood Loss (mL): 50 Fluids Replaced: crystalloid Description of Procedure: Patient was taken in the operating room and was placed under general anesthesia was prepped and draped in normal sterile fashion in the dorsal lithotomy position. Bladder was drained of clear urine and SCDs were on preoperatively. Uterus was sounded and a uterine manipulator was placed after dilating. Attention was then paid to the abdominal portion of the procedure and the umbilicus was elevated with towel clamps and injected with Marcaine and after a 5 mm incision was made and the Veress needle was entered into the abdomen confirmed to be intra-abdominal with a low opening pressure of less than 5 mmHg. Abdomen was insufflated with CO2 gas and a 5 mm optical trocar was placed under direct visualization. A 5 mm port was placed in the right and left lower quadrant ports under direct visualization. Uterus was well visualized and there is noted to be a left ruptured ectopic coming from the left fallopian tube. Blo od and clot were seen in the cul-de-sac. Fallopian tube was elevated and mesosalpinx transected and abnormal portion of the fallopian tube and were removed without complication and then placed in a bag and removed through the 5 mm port site. significant adhesions seen around both tubes, taken down with ligasure and sigmoid adhesions taken down with ligasure. Liver and upper abdomen were visualized notably within normal limits and no other gross abnormalities were seen in the abdomen. All instruments removed from the abdomen after gas was desufflated. All port sites were closed with 3-0 Monocryl Steri's and op sites were applied. All instruments removed from the vagina and patient was awoken and taken recovery in stable condition. Grafts/Implants Used: none Procedure Start Time: 19:08 Procedure Stop Time: 19:40 Complications none Admit VTE Documentation VTE Present on Admission: No VTE Mechan Device Prophylaxis: SCD's Procedures Urinary/Genital [id number]: 68669 Treat ectopic lapro w/ salpingectomy
[2023-11-12] MEDS: Lactated Ringers 1,000 ML 15 ML IV (17:50)
[2023-11-12 18:06] LABS: Hematocrit 35.1 % (37-47); Hemoglobin 11.5 g/dL (12.0-15.0); Mean Corp Hgb Conc 32.8 g/dL (32-36); Mean Corpuscular Hgb 27.1 pg (27.0-32.0); Mean Corpuscular Volume 82.6 fL (81-99); Mean Platelet Vol. 9.5 fl (6.2-12.0); Platelet Count 261 K/mm3 (150-450); RBC Distribution Width CV 13.1 % (11.6-14.6); Red Blood Count 4.25 M/mm3 (4.2-5.4); White Blood Count 6.3 K/mm3 (4.4-11.0)
[2023-11-12] MEDS: Doxycycline 100 MG in Dextrose 5%-Water (250mL Bag) 250 ML 250 MG IV (19:32)
[2023-11-12] MEDS: Bupivacaine 0.25% 30 ML Vial (19:38)
--- NOTE | 2023-11-12 19:39 | PCM.DC ---
Discharge Instructions Diet Discharge Diet: No restrictions Activity Discharge Activity: Return to Normal Activity, May Not Drive (for 2 weeks or while taking narcotic pain meds.), May Shower and May Take a Tub Bath (in 7 days) May resume sexual activity in: 1 week Weight Bearing Status: Full weight bearing Dressing / Incision Call your doctor if your incision/area has: Continuous Slow Oozing, Sudden Increased Bleeding, Increased Pain/ Swelling, Increased Redness and Foul Smelling Discharge Call your doctor if you observe: Fever of 101 or Higher, Using more than 1 pad per hour, Shortness of breath, Chest pain and Uncontrolled pain Suture Line Care: Avoid Pulling/Pushing and Avoid Pinching/Bending Remove Dressing in: 1 week (if present) Cleanse incision/area with: Soap & Water and Keep Dressing Clean & Dry Follow Up Care When: Call to make an appointment with your doctor for a fu/incision check in 1-2 weeks. Test Results: Test results from this visit will be discussed in further detail at your follow-up appointment, if applicable. Discharge Plan Admission Attending Provider: Marisabel Hudson Primary Care Provider: Silvestre Meneses Discharge Orders/Prescriptions Prescriptions: No Action sertraline 50 mg tablet 50 mg PO QDAY Qty: 90 3RF Referrals / Follow Up: Silvestre Meneses, HOME VISITOR [facility] [Primary Care Provider] - Disposition Disposition (needs filled in before D/C Order can be placed): Home, Self Care
== END 2023-11-12 21:32 | disposition home or self-care (01) ==
LOC: US 17:11 → AC 17:16 → SDC 17:16
PROVIDERS: PCP Nurse Practitioner Family; Referring Provider Obstetrics & Gynecology; Visit Provider Obstetrics & Gynecology
PROC: 10T24ZZ Resection of Products of Conception, Ectopic, Percutaneous Endoscopic Approach (ICD-10-PCS; CPT 59150; principal; 2023-11-12 17:30)
DX: O00.90 Unspecified ectopic pregnancy without intrauterine pregnancy (principal); O99.341 Other mental disorders complicating pregnancy, first trimester; F41.9 Anxiety disorder, unspecified; Z79.899 Other long term (current) drug therapy; F17.220 Nicotine dependence, chewing tobacco, uncomplicated; O99.331 Smoking (tobacco) complicating pregnancy, first trimester; O26.891 Other specified pregnancy related conditions, first trimester; Z67.91 Unspecified blood type, Rh negative
CPT/HCPCS: 59151; 00840; 76817; 85027; 88305; J7120; J2405

== ENCOUNTER → 2023-11-12 | Outpatient (CLI) | payer OTHER, MEDICAID, SELFPAY ==
[2023-11-12 09:52] LABS: hCG Titer Quant., Serum 908 mIU/mL (1-3)
== END | disposition home or self-care (01) ==
PROVIDERS: PCP Nurse Practitioner Family; Referring Provider Nurse Practitioner Women's Health; Visit Provider Nurse Practitioner Women's Health
DX: O20.9 Hemorrhage in early pregnancy, unspecified (principal); Z3A.00 Weeks of gestation of pregnancy not specified
CPT/HCPCS: 36415; 84702; 86850; 86900; 86901

== ENCOUNTER → 2023-11-18 | Outpatient (CLI) | payer OTHER, MEDICAID, SELFPAY ==
--- NOTE | 2023-11-18 15:26 | US_ITS ---
INDICATION: pelvic pain EXAMINATION: Ultrasound US Pelvis Non OB Complete With Transvaginal Imaging TECHNIQUE: Transabdominal and transvaginal pelvic ultrasound was performed. Grayscale, spectral waveform, and color flow Doppler evaluation of the adnexa. COMPARISON: November 12, 2023. FINDINGS: UTERUS: Anteverted. The uterus measures 9.8 x 6.1 x 5.0 cm with multiple myometrial fibroids, 2.4 cm of the anterior body, 1.9 cm of the anterior segment, 1.5 cm of the posterior body with exophytic component, 1.5 cm the posterior uterine body. The endometrial stripe measures 7 mm in AP diameter which is within normal limits. RIGHT OVARY: 3.1 x 1.2 x 1.9 cm. Normal small follicles. There is normal arterial inflow and venous outflow present in the right ovary. No evidence of additional adnexal mass. LEFT OVARY: 3.6 x 1.9 x 2.6 cm with multiple follicles up to 1.6 cm in size. . There is normal arterial inflow and venous outflow present in the left ovary. No evidence of additional adnexal mass. FREE FLUID: Trace anterior and posterior physiologic cul-de-sac free fluid without significant change from prior exam. US/Pelvic w/ Transvaginal IMPRESSION: [Fibroid uterus. Normal ovaries with dominant 1.6 cm left ovarian follicle. No evidence of additional adnexal mass. Electronically Signed: Anam Fournier MD at 22:24 EDT ,
== END | disposition home or self-care (01) ==
PROVIDERS: PCP Nurse Practitioner Family; Referring Provider Obstetrics & Gynecology; Visit Provider Obstetrics & Gynecology
DX: O00.90 Unspecified ectopic pregnancy without intrauterine pregnancy (principal)
CPT/HCPCS: 76830; 76856

== ENCOUNTER → 2023-11-19 | Outpatient (CLI) | payer OTHER, MEDICAID, SELFPAY ==
[2023-11-19 16:01] LABS: hCG Titer Quant., Serum 38 mIU/mL (1-3)
== END | disposition home or self-care (01) ==
LOC: PAVLAB 15:12
PROVIDERS: Nurse Practitioner Women's Health; PCP Nurse Practitioner Family; Referring Provider Obstetrics & Gynecology; Visit Provider Obstetrics & Gynecology
DX: O20.9 Hemorrhage in early pregnancy, unspecified (principal); Z3A.00 Weeks of gestation of pregnancy not specified
CPT/HCPCS: 36415; 84702

== ENCOUNTER → 2023-11-26 | Outpatient (CLI) | payer OTHER, MEDICAID, SELFPAY ==
[2023-11-26 14:04] LABS: hCG Titer Quant., Serum 4 mIU/mL (1-3)
== END | disposition home or self-care (01) ==
LOC: PAVLAB 13:35
PROVIDERS: PCP Nurse Practitioner Family; Referring Provider Nurse Practitioner Women's Health; Visit Provider Nurse Practitioner Women's Health
DX: O03.9 Complete or unspecified spontaneous abortion without complication (principal)
CPT/HCPCS: 36415; 84702

== ENCOUNTER → 2023-12-07 | Outpatient (CLI) | payer OTHER, MEDICAID, SELFPAY ==
[2023-12-07 16:11] LABS: hCG Titer Quant., Serum < 1 mIU/mL (1-3)
== END | disposition home or self-care (01) ==
PROVIDERS: PCP Nurse Practitioner Family; Referring Provider Obstetrics & Gynecology; Visit Provider Obstetrics & Gynecology
DX: N91.2 Amenorrhea, unspecified (principal)
CPT/HCPCS: 36415; 84702

== ENCOUNTER → 2024-01-18 | Outpatient (CLI) | payer OTHER, SELFPAY ==
--- NOTE | 2024-01-18 11:50 | RAD_ITS ---
INDICATION: FERTILITY-FALLOPIAN TUBE PATENCY EXAMINATION/TECHNIQUE: Routine hysterosalpingography was performed. Total Fluoroscopic Time: 58 seconds AND number of Fluoroscopic Images: 5 OR Radiation dosage index: 15.22 mGy. COMPARISON: No relevant prior comparison study available FINDINGS: The uterine cavity contour is unremarkable. There are no filling defects or abnormalities. Both fallopian tubes were visualized although there is no evidence of free spill RAD/Salpingogram IMPRESSION: Unremarkable uterus. The fallopian tubes were opacified although there is no evidence of free spill. Electronically Signed: Keadr Child MD at 13:20 EDT ,
--- NOTE | 2024-01-18 17:43 | PCM.OPRPT ---
Problems Associated Problem List Diagnoses (1) Adhesion of fallopian tube: Report of Operation Date of Procedure: 01/18/24 Pre-Operative Diagnosis: history of fallopian tube adhesions Post-Operative Diagnosis: history of fallopian tube adhesions Surgery/Procedure Performed:: hysterosalpingogram. Surgeon: Indiana Chaves paper machine supervisor: None Type of Anesthesia: None Special Medications: none Specimen's removed: none Drains: none Estimated Blood Loss (mL): none Fluids Replaced: none Description of Procedure: Findings: Bilateral tubal patency and normal uterine cavity Operative details: Patient was taken to the x-ray room and was placed on the x-ray table and was in the dorsal lithotomy position. Speculum was placed in the vagina and the cervix prepped with Betadine and the HSG catheter was easily introduced into the uterus and speculum removed. Radiologist was brought in and while pushing radiopaque dye into the uterus via the HSG catheter the radiologist took multiple images and views and no spillage was seen from either fallopian tube. No gross uterine filling defects or abnormalities were seen. All instruments removed from the vagina and the uterus without complication. Patient tolerated the procedure well. Multi Select Codes Urinary/Genital Urinary/Genital CPT Codes: 56271 HSG/SIS
== END | disposition home or self-care (01) ==
LOC: RAD 11:50
PROVIDERS: PCP Nurse Practitioner Family; Referring Provider Obstetrics & Gynecology; Visit Provider Obstetrics & Gynecology
DX: N73.6 Female pelvic peritoneal adhesions (postinfective) (principal)
CPT/HCPCS: 58340; 74740

== ENCOUNTER → 2024-04-25 | Outpatient (CLI) | payer OTHER, SELFPAY ==
--- NOTE | 2024-04-25 15:02 | RAD_ITS ---
STUDY: X-RAY - LEFT HAND, ATTENTION MIDDLE FINGER REASON FOR EXAM: Female, 33 years old. pain TECHNIQUE: 2 view(s) of the finger were obtained. COMPARISON: None. FINDINGS: Normal metacarpal head. Normal metacarpophalangeal joint. Normal proximal phalanx. Normal middle phalanx. Normal distal phalanx. Normal proximal interphalangeal joint. Normal distal interphalangeal joint. RAD/Finger(s) Min 2 Views IMPRESSION: Normal x-ray examination of the finger. Electronically Signed: Travis De La Torre MD at 16:16 EDT ,
== END | disposition home or self-care (01) ==
PROVIDERS: PCP Nurse Practitioner Family; Referring Provider Physician Assistant; Visit Provider Physician Assistant
DX: M79.645 Pain in left finger(s) (principal)
CPT/HCPCS: 73140

== ENCOUNTER → 2025-03-30 | Outpatient (CLI) | payer BC, SELFPAY ==
[2025-04-05 14:08] LABS: HPV APTIMA, High Risk Negative (Negative)
== END | disposition home or self-care (01) ==
LOC: LABSPEC 11:56
PROVIDERS: PCP Nurse Practitioner Family; Referring Provider Nurse Practitioner Family; Visit Provider Nurse Practitioner Family
DX: Z12.4 Encounter for screening for malignant neoplasm of cervix (principal)
CPT/HCPCS: 87624; 88175; G0145

== ENCOUNTER → 2025-04-05 | Outpatient (CLI) | payer BC, SELFPAY ==
--- NOTE | 2025-04-05 14:03 | BI_ITS ---
EXAM: DIAG MAMM W/CAD, BILAT 04/05/2025 CLINICAL HISTORY: F, Age 34 y/o , SCREEN FOR BREAST CANCER, LEFT BREAST LUMP. Left upper inner quadrant lump. TECHNIQUE: Procedure Code: [id number] Modality: MG Procedure: DIAG MAMM W/CAD, BILAT. COMPARISON: Baseline study. FINDINGS: TISSUE DENSITY: The breasts are extremely dense, which lowers the sensitivity of mammography. Bilateral Breast Mammographic Findings: No significant masses, calcifications or other abnormalities are identified. No suspicious masses, areas of developing architectural distortion, or suspicious calcifications. Partially calcified left axillary lymph node. With the patient's history of a palpable lump in the upper inner quadrant of the left breast targeted ultrasound correlation recommended. BI/DIAG MAMM W/CAD, BILAT IMPRESSION: Targeted sonographic correlation of the palpable lump of the left breast recomm ended. Targeted ultrasound of the left axilla as well. OVERALL FINAL ASSESSMENT BI-RADS 0: INCOMPLETE - NEED ADDITIONAL IMAGING EVALUATION. RECOMMENDATION: Ultrasound Recommended A letter with findings and recommendations will be mailed to the patient. Reading Location: [place] [id number]
--- NOTE | 2025-04-05 14:03 | US_ITS ---
PROCEDURE: BREAST LIMITED UNILATERAL 04/05/2025 REASON FOR EXAM: F, Age 34 y/o , BREAST LUMP COMPARISON: Prior mammogram done earlier in the day.. TECHNIQUE: Procedure Code: USBRSTLIMIT Modality: US Procedure: BREAST LIMITED UNILATERAL. The medial half of the left breast was examined with ultrasound. FINDINGS: There is a 1.5 cm x 0.6 cm x 0.6 cm lymph node with central fatty hilum in the axilla. US/Breast Limited Unilateral IMPRESSION: Benign-appearing left axillary lymph node. BI-RADS 2: BENIGN RECOMMENDATION: Routine annual follow-up in 1 Year Reading Location: [id number]
== END | disposition home or self-care (01) ==
PROVIDERS: PCP Nurse Practitioner Family; Referring Provider Nurse Practitioner Family; Visit Provider Nurse Practitioner Family
DX: N63.22 Unspecified lump in the left breast, upper inner quadrant (principal)
CPT/HCPCS: 76642; 77062; 77066; G0279